=== PATIENT | female | born 1945 | race Caucasian/White ===

== ENCOUNTER → 2020-04-27 | Outpatient (CLI) | payer MEDICARE ==
[~2020-04-27] MED LIST: AMLO-186 PO; ASPI-424 PO; ATOR10TA PO; CETI10TA74 PO; IBAN150T15 PO; LISI20TA18 PO; MELA1TAB44 PO; OXYC-325 PO
== END ==
LOC: LAB 10:55
PROVIDERS: ATTEND Surgery
DX: Z01.812 Encounter for preprocedural laboratory examination (principal); K81.1 Chronic cholecystitis; Z20.828 Contact with and (suspected) exposure to other viral communicable diseases
CPT/HCPCS: U0003

== ENCOUNTER 2020-05-02 08:33 | Day surgery (SDC) | payer MEDICARE, OTHER ==
[~2020-05-02] VITALS: Ht 160 cm; Wt 72.0 kg
[~2020-05-02 08:33] MED LIST changes: +ACETAMINOPHEN 500 MG TABLET PO PRN; -AMLO-186 PO; -ASPI-424 PO; -ATOR10TA PO; -CETI10TA74 PO; +HYDROmorphone 2 MG/ML VIAL IV PRN; -IBAN150T15 PO; +IV RINGERS,LACTATED 1000ML 1,000 ML IV SCH; -LISI20TA18 PO; -MELA1TAB44 PO; +MORPHINE SULFATE 2 MG/ML VIAL. IV PRN; +ONDANSETRON PF 4 MG/2 ML VIAL. IV PRN; -OXYC-325 PO; +PROCHLORPERAZINE 10 MG/2 ML VIAL. IV PRN; +ceFAZolin SODIUM IV Push 1 GM VIAL. IVP PRN; +fentaNYL PF VIAL 100 MCG/2 ML VIAL IV PRN
[2020-05-02] MEDS ORDERED: ROCURONIUM 50 MG/5 ML VIAL. ONE (08:50)
[2020-05-02] MEDS ORDERED: DEXAMETHASONE SOD PHOS 4 MG/ML VIAL ONE ×2 (08:50→10:35)
[2020-05-02] MEDS ORDERED: LIDOCAINE 2% PF 5 ML VIAL. ONE (08:50)
[2020-05-02] MEDS ORDERED: PROPOFOL 10 MG/ML (20ML) VIAL. IV ONE (08:50)
[2020-05-02] MEDS ORDERED: BUPIVACAINE-EPI 0.25% 30 ML VIAL KIT. ONE (08:53)
[2020-05-02] MEDS ORDERED: IOHEXOL 300 MG/ML 50 ML VIAL. ONE (08:53)
[2020-05-02] MEDS ORDERED: SURGICEL HEMOSTAT 4X8 EACH. ONE (08:53)
[2020-05-02] MEDS ORDERED: IBAN150T15 PO (09:06)
[2020-05-02] MEDS ORDERED: CETI10TA74 PO (09:07)
[2020-05-02] MEDS ORDERED: ASPI-424 PO (09:07)
[2020-05-02] MEDS ORDERED: AMLO-186 PO (09:07)
[2020-05-02] MEDS ORDERED: MELA1TAB44 PO (09:08)
[2020-05-02] MEDS ORDERED: LISI20TA18 PO (09:08)
[2020-05-02] MEDS ORDERED: ATOR10TA PO (09:09)
[2020-05-02] MEDS ORDERED: fentaNYL PF VIAL 100 MCG/2 ML VIAL ONE (09:30)
[2020-05-02] MEDS ORDERED: NEOSTIGMINE METHYLSULFATE 5 MG/5 ML SYRINGE. ONE ×2 (10:28→11:27)
[2020-05-02] MEDS ORDERED: GLYCOPYRROLATE 1 MG/5 ML VIAL. ONE ×2 (10:28→11:27)
[2020-05-02] MEDS ORDERED: ONDANSETRON PF 4 MG/2 ML VIAL. ONE (10:35)
[2020-05-02] MEDS ORDERED: SEVOFLURANE 31 TO 60 MINUTES. IH ONE (10:41)
--- NOTE | 2020-05-02 10:46 | PDOC4 ---
Operative Note Operative Note Date: May [id number] at 1043 Preoperative diagnosis: Chronic cholecystitis Postoperative diagnosis: Same Procedure: Laparoscopic cholecystectomy Surgeon: Bjorn Specimen: Gallbladder Dictation: Patient is 74-year-old female is had right upper quadrant abdominal pain ultrasound showing gallstones. Procedure of laparoscopic cholecystectomy was explained to the patient in detail all risk and benefits were also discussed including bleeding infection injury to intra-abdominal contents possibly necessitating further open operations alternatives to this procedure also discu ssed with the patient who seemed to understand and gave both verbal and written consent to have the procedure performed. Patient was taken to the operating room placed in the supine position general anesthesia was initiated once patient was sleeping intubated her abdomen was prepped and draped usual sterile fashion using ChloraPrep. An area just below the umbilicus was injected with quarter percent Marcaine with epinephrine incision was made 11 blade scalpel and a varies needle was placed within the abdomen creating pneumoperitoneum once this was complete 11 mm port was placed and a 5 mm camera's placed within the abdomen no other abnormality were noted within the abdomen the 5 mm port was placed in the epigastrium a 5 mm port was placed in the right midabdomen a 5 mm port was placed in the right lateral abdomen. The dome of the gallbladder is grasped retracted cephalad the infundibulum of the gallbladder is grasped retracted laterally exposing the triangle adherent tissues the triangle were taken down with blunt dissection exposing the cystic duct and cystic artery both were doubly clipped and transected the gallbladder was taken off the liver with hook electrocautery placed in Endo Catch bag and removed from the umbilicus. Right upper quadrant is irrigated and suctioned dry hemostasis deemed to be appropriate the pneumoperitoneum was reduced all ports were removed the fascial defect at the umbilicus was closed with [id number] 0 Vicryl suture and the skin was reapproximated all port sites for subcuticular Monocryl Mastisol Steri- Strips and island dressings were applied. Patient was awakened and extubated in the operating room taken to recovery in stable condition all sponge instrument needle counts listed as correct estimated blood loss 20 mL. WILLAM CALDERON MD May 02, 2020 10:46
--- NOTE | 2020-05-02 10:47 | DISCH ---
DISCHARGE INSTRUCTIONS Condition on Discharge Condition on Discharge: Stable Activity After Discharge Activity Instructions for Disc: Avoid exertion Other activity instructions: No lifting more than 20 pounds for 2 weeks Diet after Discharge Diet after Discharge: Low Fat Wound Incision Care Other wound/incision instructi: May shower in 24 hours Contacting the after DC Call your doctor for: If your condition worsens Follow-Up Follow up with: Dr. Calderon in 2 weeks WILLAM CALDERON MD May 02, 2020 10:47
[2020-05-02] MEDS ORDERED: OXYC-325 PO (10:55)
[2020-05-02] MEDS ORDERED: oxyCODONE/APAP 5/325 1 TAB TABLET PO ONE ×2 (11:30)
[2020-05-02 11:45] VITALS: BP 119/36
== END 2020-05-02 12:35 | disposition home or self-care (01) ==
LOC: SURG 08:33 → EDUNIT# 10:15 → SURG 12:35
PROVIDERS: ATTEND Surgery
DX: K81.1 Chronic cholecystitis (principal); I10 Essential (primary) hypertension; E78.00 Pure hypercholesterolemia, unspecified; J44.9 Chronic obstructive pulmonary disease, unspecified; M19.90 Unspecified osteoarthritis, unspecified site; M81.0 Age-related osteoporosis without current pathological fracture; Z98.51 Tubal ligation status; Z98.890 Other specified postprocedural states; Z79.82 Long term (current) use of aspirin; Z79.899 Other long term (current) drug therapy; Z87.891 Personal history of nicotine dependence; Z72.89 Other problems related to lifestyle
CPT/HCPCS: 47562; J0690; J1100; J2405; J2704; J2710; J3010; J3490; 88304; Q9967